=== PATIENT | female | born 1965 | race Caucasian/White ===

== ENCOUNTER → 2017-05-26 09:52 | Outpatient (CLI) | payer OTHER, SELFPAY ==
--- NOTE | 2017-05-26 10:20 | XR_ITS ---
XR chest 2V COMPARISON: None HISTORY: Suspected COPD TECHNIQUE: PA and lateral chest FINDINGS: Borderline emphysematous changes noted. There is no infiltrate. There is mild aortic tortuosity no cardio megaly. There is no pleural fluid. IMPRESSION: Borderline COPD otherwise negative chest
[2017-05-26 10:36] LABS: Basophils % 0.4 % (0.1-2.0); Eosinophils # 0.1 K/mm3 (0.0-0.4); Eosinophils % 1.2 % (0.1-12.0); Hematocrit 42.7 % (37.0-47.0); Hemoglobin 14.2 g/dL (12.2-16.2); Lymphocytes # 3.4 K/mm3 (0.7-4.5); Lymphocytes % 29.6 K/mm3 (10-50); Mean Corpuscular HGB Conc 33.3 g/dL (31.8-35.4); Mean Corpuscular Hemoglobin 31.5 pg (27.0-31.2); Mean Corpuscular Volume 94.7 fl (81-99); Mean Platelet Volume 7.6 fl (7.4-10.4); Monocytes # 0.5 K/mm3 (0.1-1.0); Monocytes % 4.5 % (1.7-9.3); Neutrophils # 7.5 K/mm3 (1.8-7.8); Neutrophils % 64.3 % (37.0-80.0); Platelet Count 379 K/mm3 (142-424); Red Blood Count 4.51 M/mm3 (4.20-5.40); Red Cell Distribution Width 13.4 % (11.5-17.5); White Blood Count 11.6 K/mm3 (4.8-10.8)
[2017-05-26 14:56] LABS: Alanine Aminotransferase 61 U/L (12-78); Albumin Level 4.2 gm/dL (3.4-5.0); Albumin/Globulin Ratio 1.1 (1.1-1.8); Alkaline Phosphatase 95 U/L (46-116); Anion Gap 12.6 mEq/L (5-15); Aspartate Amino Transferase 32 U/L (15-37); Bilirubin,Total 0.3 mg/dL (0.2-1.0); Blood Urea Nitrogen 11 mg/dL (7-18); Calcium 9.4 mg/dL (8.5-10.1); Carbon Dioxide 29 mmol/L (21.0-32.0); Chloride 100 mmol/L (98-107); Creatinine,Serum 0.99 mg/dL (0.55-1.02); Estimated Glomerular Filt Rate 59 ml/min (>60); GFR (African American) 72 ML/MIN (>60); Globulin 3.8 gm/dl (1.3-3.2); Potassium 3.6 mmoL/L (3.5-5.1); Sodium 138 mmol/L (136-145)
[2017-05-26 15:15] LABS: Glucose 125 mg/dL (74-106)
== END ==
PROVIDERS: PCP Otolaryngology; Visit Provider Otolaryngology
DX: D48.7 Neoplasm of uncertain behavior of other specified sites (principal); J44.9 Chronic obstructive pulmonary disease, unspecified; Z01.810 Encounter for preprocedural cardiovascular examination; Z01.812 Encounter for preprocedural laboratory examination
CPT/HCPCS: 36415; 71046; 80053; 85025; 93005

== ENCOUNTER 2017-06-01 07:09 | Day surgery (SDC) | payer OTHER, SELFPAY ==
[2017-05-30 10:21] VITALS: BMI 35.9
[2017-06-01 07:34] VITALS: BP 143/86; PULSE 83; RESP 18; TEMP 36.4; O2SAT 96
--- NOTE | 2017-06-01 07:57 | P.PN_ITS ---
[facility] Anesthesia Checklist - Patient Identification Patient Identification: Arm Band - Structural Data Admitted From: Home Planned Operative Procedure/s: removal of growth on tip of nose Consent for Planned Operative Procedure(s) Verified: Yes Verified Documents: Surgical Consent, History and Physical - NPO Status Verified Time NPO: 00:00 - Additional verifications Anesthesia Reactions: No - Airway Assessment C-Spine Mobility Assessed: Yes (mp2) TMJ Mobility Assessed: Yes Dentition: Edentulous - Neurological Assessment Level of Consciousness: Awake, Alert - Anesthesia Plan Anesthesia Risk discussed: Yes Anesthesia Plan: Verified ASA Class: III Anesthesia Type: MAC [facility] Anesthesia HX I have reviewed the patient's past medical history: Yes Medical History: Reports:: Chronic Obstructive Pulmonary Disease (COPD), Diabetes Mellitus Type 2, Gastroesophageal Reflux Disease(GERD), Home Oxygen, Hypertension, MRSA (on leg) Denies:: Cancer, Diabetes Mellitus Type 1, Seizures Other Medical History: Denies: Blood Transfusion Reaction Other Surgeries: Yes: Tubal Ligation Amputation: No Fractures: No *Family Hx:: Cancer, Coronary Artery Disease, Hypertension, Diabetes, Hyperlipidemia
[2017-06-01 08:50] VITALS: BP 114/66; PULSE 88; RESP 16; TEMP 36.6; O2SAT 93
[2017-06-01 08:56] VITALS: BP 111/73; PULSE 83; RESP 18; O2SAT 93
[2017-06-01 09:05] VITALS: BP 113/73; PULSE 87; RESP 18; O2SAT 93
--- NOTE | 2017-06-01 17:24 | [facility].OPNOTE ---
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 The eyes were protected with Steri-Strips. The perilesional area on the right side of the nasal tip was was marked out on the markup measured 1.5 cm. The perilesional area was infiltrated with 2% lidocaine containing epinephrine. The markup was incised and the lesion was excised and submitted. Bleeding was less than 5 cc and stopped with bipolar cautery. Flaps were elevated and a superior release was done in order to facilitate a tissue rearrangement Z-plasty repair. A Dermabond dressing was applied and the patient was sent to recovery in good general condition. Condition: stable Disposition: same day Complications:: none
--- NOTE | 2017-06-01 17:27 | P.OP_ITS ---
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 The eyes were protected with Steri-Strips. The perilesional area on the right side of the nasal tip was was marked out on the markup measured 1.5 cm. The perilesional area was infiltrated with 2% lidocaine containing epinephrine. The markup was incised and the lesion was excised and submitted. Bleeding was less than 5 cc and stopped with bipolar cautery. Flaps were elevated and a superior release was done in order to facilitate a tissue rearrangement Z-plasty repair. A Dermabond dressing was applied and the patient was sent to recovery in good general condition. Condition: stable Disposition: same day Complications:: none
[2017-06-07 15:05] LABS: POC Glucose,Bedside 129 mg/dL (70-110)
== END 2017-06-01 08:56 | disposition home or self-care (01) ==
LOC: OR 07:11
PROVIDERS: PCP Physician Assistant; Visit Provider Otolaryngology
PROC: (CPT 14060; principal; 2017-06-01 08:45)
DX: C44.301 Unspecified malignant neoplasm of skin of nose (principal); E11.8 Type 2 diabetes mellitus with unspecified complications
CPT/HCPCS: 14060; 82962; 94640; 96374